=== PATIENT | female | born 1985 | race African-American/Black ===

== ENCOUNTER 2023-08-05 10:30 | Inpatient (IN) | payer OTHER, SELFPAY ==
[2023-08-05] VITALS (18 sets, daily range): BP systolic 120–152; BP diastolic 76–97; PULSE 57–84; RESP 16–18; TEMP 36.1–36.8; O2SAT 95–100; BMI 37.8
--- NOTE | 2023-08-05 11:02 | DI.US.S_ITS ---
PROCEDURE: US ABDOMEN LIMITED INDICATIONS: RIGHT UPPER QUADRANT PAIN TECHNIQUE: Real-time focused scanning was performed of the abdomen, with image documentation. COMPARISON: None. FINDINGS: Liver is within normal limits. Multiple calculi within the gallbladder lumen are present. Nonmobile calculus within the gallbladder neck. No gallbladder wall thickening. No biliary ductal dilatation. Pancreas is not well seen but is within normal limits as visualized. No ascites. IMPRESSION: Cholelithiasis. No evidence of cholecystitis. Dictated by: Antelmo Sarmiento M.D. on 08/05/2023 at 11:42 Approved by: Antelmo Sarmiento M.D. on 08/05/2023 at 11:43
--- NOTE | 2023-08-05 11:09 | ED_ITS ---
[facility] - General Adult General Chief complaint: Abdominal Pain Stated complaint: needs gall bladder checked sent by Time Seen by Provider: 08/05/23 10:50 Source: patient Mode of arrival: Ambulatory History of Present Illness HPI narrative: 38-year-old woman with a history of depression who began having epigastric pain approximately 4:00 p.m. yesterday after last eating around 3:00 p.m.. She was seen at [facility] in bedside ultrasound suggested coli lithiasis with concern for cholecystitis. She eventually ends up at [facility] for further evaluation and ultrasound for confirmation. Records from [facility] are reviewed. She did not have leukocytosis but did have AST elevated at 561, ALT elevated to 53 with normal alk-phos and normal bilirubin. She states she was able to sleep last night and woke up with a general discomfort in the right upper quadrant but not hurting as much as it had yesterday. She has not had anything to eat since 3:00 p.m. yesterday. No fevers, chest pain, palpitations, cough, diarrhea, vomiting Related Data Allergies Allergy/AdvReac Type Severity Reaction Status Date / Time No Known Drug Allergies Allergy Verified 08/05/23 10:44 Review of Systems Review of Systems Narrative: Pertinent positive and negative findings as per HPI Patient History Medical History (Updated 08/05/23 @ 17:45 by Linda Leigh MD) Obesity Depression Social History Smoking Status: Current every day smoker Smoking Status: Current every day smoker tobacco type: vaping alcohol intake frequency: a few times a week Substance Use Type: does not use Exam Initial Vital Signs Initial Vital Signs: Vital Signs Temperature 98.2 F 08/05/23 10:40 Pulse Rate 73 08/05/23 10:40 Respiratory Rate 18 08/05/23 10:40 Blood Pressure 152/97 H 08/05/23 10:40 Pulse Oximetry 98 08/05/23 10:40 Oxygen Delivery Method Room Air 08/05/23 10:40 General: Healthy appearing, in no acute distress. Able to give a complete and coherent history. Well-nourished well-developed HEENT: Moist mucous membranes, normal sclera with reactive pupils, Respiratory: Lungs are clear to auscultation, no wheezing no rales no rhonchi. Full and symmetrical air movement Cardiac: Regular rate and rhythm no murmurs no bruits Abdomen: Soft, minor discomfort in the right upper quadrant no rebound or guarding, no flank pain. Skin: Warm and dry, no rashes Neurologic: Grossly neurologically intact with no obvious asymmetries or abnormalities Extremities: No trauma, well perfused Psych: Cooperative, appropriate insight and affect Course Orders Ordered: ED Orders 08/05/23 10:43 Complete Blood Count AUTO DIFF Stat Comprehensive Metabolic Panel Stat Lipase Stat 08/05/23 11:02 US abdomen limited Stat 08/05/23 11:55 MRCP [MR abdomen wo/w con] Stat 08/05/23 12:16 Urine Microscopic Stat Hydromorphone HCl (Hydromorphone 0.5 Mg Inj) 0.5 mg IV Q15MIN PRN PRN Reason: Pain, Last Admin: 08/05/23 12:09 Dose: 0.5 mg Documented By: LAURA Ondansetron HCl (Ondansetron 4 Mg Odt) 4 mg PO NOW PRN PRN Reason: Nausea And Vomiting Ondansetron HCl (Ondansetron 4 Mg/2 Ml Inj) 4 mg IV NOW PRN PRN Reason: Nausea And Vomiting Discontinued Medications Sodium Chloride (Normal Saline 0.9%) 1,000 mls @ 1,000 mls/hr IV BOLUS ONE Stop: 08/05/23 12:59 Last Infusion: 08/05/23 13:06 Dose: Infused Documented By: Admin: 08/05/23 12:08 Dose: 1,000 mls/hr Documented By: LAURA Ondansetron HCl (Ondansetron 4 Mg/2 Ml Inj) 4 mg IV NOW ONE Stop: 08/05/23 12:01 Last Admin: 08/05/23 12:09 Dose: 4 mg Documented By: LAURA Vital Signs Vital signs: Vital Signs - 8 hr 08/05/23 10:40 08/05/23 10:41 08/05/23 11:00 Temperature 98.2 F Pulse Rate 73 73 71 Respiratory Rate 18 Blood Pressure 152/97 H Pulse Oximetry 98 99 98 Oxygen Delivery Method Room Air 08/05/23 11:30 08/05/23 12:00 08/05/23 12:16 Temperature Pulse Rate 70 78 Respiratory Rate Blood Pressure 132/91 H Pulse Oximetry 98 100 Oxygen Delivery Method 08/05/23 12:16 08/05/23 12:30 08/05/23 13:00 Temperature Pulse Rate 84 72 57 L Respiratory Rate Blood Pressure Pulse Oximetry 100 98 99 Oxygen Delivery Method 08/05/23 13:30 08/05/23 14:00 08/05/23 15:26 Temperature Pulse Rate 69 75 Respiratory Rate Blood Pressure 143/95 H Pulse Oximetry 95 98 Oxygen Delivery Method 08/05/23 15:26 08/05/23 15:30 08/05/23 15:30 Temperature Pulse Rate 81 66 Respiratory Rate Blood Pressure 138/91 H Pulse Oximetry 99 96 Oxygen Delivery Method Medical Decision Making Lab Data 08/05/23 10:43 08/05/23 10:43 Labs: Lab Results 08/05/23 08/05/23 Range/Units 10:43 12:16 WBC 3.9 L (4.5-11.0) X10^3/uL RBC 4.28 (4.0-5.2) X10^6/uL Hgb 13.3 (12.0-16.0) g/dL Hct 39.1 (36-46) % MCV 91.4 (80-100) fL MCH 31.1 (26-34) PG MCHC 34.0 (30-36) % RDW 13.7 (11.6-14.8) % Plt Count 295 (150-400) X10^3/uL Neut % (Auto) 57.8 (50-75) % Lymph % (Auto) 33.2 (25-40) % [place] % (Auto) 8.1 (3-14) % Eos % (Auto) 0.6 L (2-4) % Baso % (Auto) 0.3 (0-2) % Neut # (Auto) 2300 (6767-5014) /uL Lymph # (Auto) 1300 (1043-1419) /uL [place] # (Auto) 300 (0-900) /uL Eos # (Auto) 0 (0-450) /uL Baso # (Auto) 0 (0-100) /uL Sodium 136 L (137-145) mmol/L Potassium 3.9 (3.4-5.1) mmol/L Chloride 104 (98-107) mmol/L Carbon Dioxide 23 (22-32) mmol/L BUN 12 (7-17) mg/dL Creatinine 0.86 (0.52-1.04) mg/dL Estimated GFR > 60 (>60) mL/min BUN/Creatinine Ratio 14.0 (6-22) Glucose 96 (70-100) mg/dL Calcium 9.3 (8.4-10.2) mg/dL Total Bilirubin 2.6 H (0.2-1.3) mg/dL AST 1648 H (14-36) IU/L ALT 1089 H (<35) IU/L Alkaline Phosphatase 142 H (38-126) U/L Total Protein 7.8 (6.3-8.2) g/dL Albumin 4.3 (3.5-5.0) g/dL Globulin 3.5 (1.7-4.1) g/dL Albumin/Globulin Ratio 1.2 (1.0-2.8) Lipase 241 (23-300) U/L Urine RBC None seen (0-5/HPF) Urine WBC 0-1/hpf (0-5/HPF) Ur Squamous Epith Cells 0-1 /hpf (0-5/HPF) Urine Bacteria None seen (None) Ur Culture Indicated? Cult not indicated Vol Urine Centrifuged 10ml (spun) Point of Care Testing Test Results Negative Urine Dip Bedside Urine Glucose Negative Bedside Urine Bilirubin + 1 Bedside Urine Ketone - Negative Urine Specific [place] 1.020 Bedside Urine Occult Blood - Negative Bedside Urine pH 6.0 Bedside Urine Protein - Negative Bedside Urine Urobilinogen - Negative Bedside Urine Nitrite - Negative Bedside Urine Leukocytes +/- 15 Esterase Point of care testing: Point of Care Testing Test Results Negative Urine Dip Bedside Urine Glucose Negative Bedside Urine Bilirubin + 1 Bedside Urine Ketone - Negative Urine Specific [place] 1.020 Bedside Urine Occult Blood - Negative Bedside Urine pH 6.0 Bedside Urine Protein - Negative Bedside Urine Urobilinogen - Negative Bedside Urine Nitrite - Negative Bedside Urine Leukocytes +/- 15 Esterase Imaging Data US - abdomen: Radiologist's Impression: PROCEDURE: US ABDOMEN LIMITED INDICATIONS: RIGHT UPPER QUADRANT PAIN TECHNIQUE: Real-time focused scanning was performed of the abdomen, with image documentation. COMPARISON: None. FINDINGS: Liver is within normal limits. Multiple calculi within the gallbladder lumen are present. Nonmobile calculus within the gallbladder neck. No gallbladder wall thickening. No biliary ductal dilatation. Pancreas is not well seen but is within normal limits as visualized. No ascites. IMPRESSION: Cholelithiasis. No evidence of cholecystitis. Dictated by: Antelmo Sarmiento M.D. on 08/05/2023 at 11:42 MRCP: Radiologist's Impression: PROCEDURE: MR ABDOMEN WO/W CON INDICATIONS: ? impacted CBD stone TECHNIQUE: Coronal HASTE, axial 2D FLASH in- and [id number]; axial breath-hold T2 FSE with fat saturation from the hepatic dome to the iliac crests. Oblique coronal thin- slice and radial thick slab HASTE through the biliary system. Dynamic axial VIBE during administration of contrast. Post-contrast coronal VIBE or 2D FLASH with fat saturation from the hepatic dome to the iliac crests. Optional diffusion weighted imaging and ADC may be performed. COMPARISON: None. FINDINGS: Image quality: Diagnostic. Gallbladder: Gallbladder is contracted. Cholelithiasis. Biliary ducts: No biliary dilation. Pancreas: No ductal dilation. OTHER: Lung bases: Unremarkable. Liver: No solid mass. Spleen: Size is within normal limits. Adrenal Glands: No adrenal nodules. Kidneys and Ureters: No hydronephrosis. No solid mass. No complex renal cystic lesion which requires follow up. Stomach and Bowel: Normal colonic caliber, without significant wall thickening. Peritoneum: No abnormal intraperitoneal fluid. No free air. Ventral Wall: No hernia. Abdominal Nodes: No retroperitoneal or mesenteric adenopathy by size criteria. Vessels: Aorta and inferior vena cava are normal in size. Bones: No aggressive osseous abnormality. IMPRESSION: Gallbladder is contracted, limiting evaluation. No evidence of choledocholithiasis. Dictated by: Clovis Tan M.D. on 08/05/2023 at 16:09 MDM Narrative Medical decision making narrative: CC: Right upper quadrant tenderness Data collected from: patient Medical records reviewed: Records from [facility] Emergency visits last night are available for review Differential considered: Cholelithiasis, cholecystitis, common bile duct stone, gallbladder neck impacted gallstone Exam documented above, pertinent findings include: Mild tenderness in the right upper quadrant. No rebound or guarding. Lab Test results independently reviewed as above. Pertinent findings: Urine test done last night it would be [place] is negative AST last night was 56.1 ALT last night was 253 normal bilirubin and alkaline phosphatase CBC is unremarkable Chemistries are concerning for now bilirubin elevated at 2.6, alk-phos increasing. Initial AST and ALT are not reported, presumably high INR needing additional dilution AST is 1648, ALT is 1089 Lipase is unremarkable Imaging studies independently reviewed: Ultrasound shows gallstones lodged in the neck of the gallbladder but no acute cholecystitis other stones are appreciated within the gallbladder as well MRCP does not show any choledocholithiasis Consultations:[address] Tapia, general surgeon. He agrees that MRCP at this point is appropriate. If there is an impacted common duct stone will need ERCP, if she is simply passed a stone maybe able to proceed to cholecystectomy Treatments: Fluids, parenteral Dilaudid, Zofran Re-evaluations:1200 findings reviewed with the patient. She has had an MRI before and does tolerate them well. She is now beginning to experienced mild nausea and pain. Discussion: MRCP does not show any choledocholithiasis. Care is reviewed with Dr. Tapia. Patient will be admitted with anticipation of cholecystectomy tomorrow afternoon. Findings reviewed with the patient she understands. At this point without evidence of cholecystitis antibiotics are not given in the emergency department. With the acute rise in liver function studies and the MR showing no common duct stone she likely has passed a stone which caused a transient elevation. Discharge Plan Departure Patient Disposition: Admitted as Observation Clinical Impression: Elevated liver function tests Cholelithiasis Qualifiers: Cholelithiasis location: gallbladder Cholecystitis presence: without cholecystitis Biliary obstruction: without biliary obstruction Qualified Code(s): K80.20 - Calculus of gallbladder without cholecystitis without obstruction Admit Date/Time: 08/05/23 17:10 Admit Provider: Kevin Tapia
[2023-08-05 11:47] LABS: Albumin 4.3 g/dL (3.5-5.0); Albumin Globulin Ratio 1.2 (1.0-2.8); Alkaline Phosphatase 142 U/L (38-126); Bilirubin Total 2.6 mg/dL (0.2-1.3); Blood Urea Nitrogen 12 mg/dL (7-17); Calcium 9.3 mg/dL (8.4-10.2); Carbon Dioxide 23 mmol/L (22-32); Chloride 104 mmol/L (98-107); Estimated Glomerular Filt Rate > 60 mL/min (>60); Globulin 3.5 g/dL (1.7-4.1); Glucose 96 mg/dL (70-100); Lipase 241 U/L (23-300); Potassium 3.9 mmol/L (3.4-5.1); Sodium 136 mmol/L (137-145); Total Protein 7.8 g/dL (6.3-8.2)
[2023-08-05 11:49] LABS: Add Manual Diff / Slide Review NO; Basophils Absolute Auto 0 /uL (0-100); Basophils Percent Auto 0.3 % (0-2); Eosinophils Absolute Auto 0 /uL (0-450); Eosinophils Percent Auto 0.6 % (2-4); Hematocrit 39.1 % (36-46); Hemoglobin 13.3 g/dL (12.0-16.0); Lymphocytes Absolute Auto 1300 /uL (1100-4500); Lymphocytes Percent Auto 33.2 % (25-40); Mean Corpuscular Hemoglobin 31.1 PG (26-34); Mean Corpuscular Volume 91.4 fL (80-100); Monocytes Absolute Auto 300 /uL (0-900); Monocytes Percent Auto 8.1 % (3-14); Neutrophils Absolute Auto 2300 /uL (1500-7000); Neutrophils Percent Auto 57.8 % (50-75); Platelet Count 295 X10^3/uL (150-400); Red Blood Cell Count 4.28 X10^6/uL (4.0-5.2); Red Cell Distribution Width 13.7 % (11.6-14.8); White Blood Cell Count 3.9 X10^3/uL (4.5-11.0)
--- NOTE | 2023-08-05 11:55 | DI.MRI.S_ITS ---
PROCEDURE: MR ABDOMEN WO/W CON INDICATIONS: ? impacted CBD stone TECHNIQUE: Coronal HASTE, axial 2D FLASH in- and [id number]; axial breath-hold T2 FSE with fat saturation from the hepatic dome to the iliac crests. Oblique coronal thin-slice and radial thick slab HASTE through the biliary system. Dynamic axial VIBE during administration of contrast. Post-contrast coronal VIBE or 2D FLASH with fat saturation from the hepatic dome to the iliac crests. Optional diffusion weighted imaging and ADC may be performed. COMPARISON: None. FINDINGS: Image quality: Diagnostic. Gallbladder: Gallbladder is contracted. Cholelithiasis. Biliary ducts: No biliary dilation. Pancreas: No ductal dilation. OTHER: Lung bases: Unremarkable. Liver: No solid mass. Spleen: Size is within normal limits. Adrenal Glands: No adrenal nodules. Kidneys and Ureters: No hydronephrosis. No solid mass. No complex renal cystic lesion which requires follow up. Stomach and Bowel: Normal colonic caliber, without significant wall thickening. Peritoneum: No abnormal intraperitoneal fluid. No free air. Ventral Wall: No hernia. Abdominal Nodes: No retroperitoneal or mesenteric adenopathy by size criteria. Vessels: Aorta and inferior vena cava are normal in size. Bones: No aggressive osseous abnormality. IMPRESSION: Gallbladder is contracted, limiting evaluation. No evidence of choledocholithiasis. Dictated by: Clovis Tan M.D. on 08/05/2023 at 16:09 Approved by: Clovis Tan M.D. on 08/05/2023 at 16:14
[2023-08-05 12:01] LABS: Alanine Aminotransferase 1089 IU/L (<35)
[2023-08-05] MEDS: SODIUM CHLORIDE 0.9% 1,000 ML 1000 ML IV (12:08)
[2023-08-05] MEDS: ONDANSETRON 4 MG/2 ML INJ IV (12:09)
[2023-08-05] MEDS: HYDROMORPHONE 0.5 MG INJ IV (12:09)
[2023-08-05 12:16] LABS: HEMOLYSIS 20 (0-50)
[2023-08-05 12:17] LABS: Aspartate Aminotransferase 1648 IU/L (14-36)
[2023-08-05 12:59] LABS: Bacteria Urine None Seen; Culture Indicated Urine Cult Not Indicated; RBC Urine None Seen (0-5/HPF); Squamous Epithelial Cell Urine 0-1 /HPF (0-5/HPF); Urine Volume 10mL (spun); WBC Urine 0-1/HPF (0-5/HPF)
--- NOTE | 2023-08-05 17:20 | P.HP_ITS ---
History of Present Illness History of Present Illness Date Patient Seen: 08/05/23 Time Patient Seen: 17:20 Chief complaint: needs gall bladder checked sent by dr Lew: Kristen is a 38-year-old woman who presents with a few days of epigastric and right upper quadrant pain. She was also noted to have elevated liver enzymes today. This prompted an ultrasound which showed gallstones as well as an MRCP which showed no evidence of choledocholithiasis. Her pain has improved in the past hour or two. 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 Medical History (Updated 08/05/23 @ 17:22 by Kevin Tapia MD) Obesity Depression Social History Smoking Status: Current every day smoker Meds Home Medications and Allergies Allergies Allergy/AdvReac Type Severity Reaction Status Date / Time No Known Drug Allergies Allergy Verified 08/05/23 10:44 Exam Vital Signs (past 8 hours): - 08/05/23 10:40 08/05/23 10:41 08/05/23 11:00 Temperature 98.2 F Pulse Rate 73 73 71 Respiratory Rate 18 Blood Pressure 152/97 H Pulse Oximetry 98 99 98 Oxygen Delivery Method Room Air 08/05/23 11:30 08/05/23 12:00 08/05/23 12:16 Temperature Pulse Rate 70 78 Respiratory Rate Blood Pressure 132/91 H Pulse Oximetry 98 100 Oxygen Delivery Method 08/05/23 12:16 08/05/23 12:30 08/05/23 13:00 Temperature Pulse Rate 84 72 57 L Respiratory Rate Blood Pressure Pulse Oximetry 100 98 99 Oxygen Delivery Method 08/05/23 13:30 08/05/23 14:00 08/05/23 15:26 Temperature Pulse Rate 69 75 Respiratory Rate Blood Pressure 143/95 H Pulse Oximetry 95 98 Oxygen Delivery Method 08/05/23 15:26 08/05/23 15:30 08/05/23 15:30 Temperature Pulse Rate 81 66 Respiratory Rate Blood Pressure 138/91 H Pulse Oximetry 99 96 Oxygen Delivery Method Oxygen Delivery Method Room Air Narrative Exam Narrative: Abdomen is soft, no Flannery sign Objective Labs 08/05/23 10:43 08/05/23 10:43 Labs: Laboratory Results - last 24 hr 08/05/23 08/05/23 10:43 12:16 WBC 3.9 L RBC 4.28 Hgb 13.3 Hct 39.1 MCV 91.4 MCH 31.1 MCHC 34.0 RDW 13.7 Plt Count 295 Neut % (Auto) 57.8 Lymph % (Auto) 33.2 [place] % (Auto) 8.1 Eos % (Auto) 0.6 L Baso % (Auto) 0.3 Neut # (Auto) 2300 Lymph # (Auto) 1300 [place] # (Auto) 300 Eos # (Auto) 0 Baso # (Auto) 0 Sodium 136 L Potassium 3.9 Chloride 104 Carbon Dioxide 23 BUN 12 Creatinine 0.86 Estimated GFR > 60 BUN/Creatinine Ratio 14.0 Glucose 96 Calcium 9.3 Total Bilirubin 2.6 H AST 1648 H ALT 1089 H Alkaline Phosphatase 142 H Total Protein 7.8 Albumin 4.3 Globulin 3.5 Albumin/Globulin Ratio 1.2 Lipase 241 Urine RBC None seen Urine WBC 0-1/hpf Ur Squamous Epith Cells 0-1 /hpf Urine Bacteria None seen Ur Culture Indicated? Cult not indicated Vol Urine Centrifuged 10ml (spun) Assessment & Plan Assessment and plan (1) Cholelithiasis: Qualifiers: Cholelithiasis location: gallbladder Cholecystitis presence: without cholecystitis Biliary obstruction: without biliary obstruction Qualified Code(s): K80.20 - Calculus of gallbladder without cholecystitis without obstruction Status: Acute Plan 30-year-old woman with symptomatic cholelithiasis. Given her elevated liver enzymes I suspect she passed a stone recently. Since the MRCP is normal I recommend we proceed with a laparoscopic cholecystectomy with an intraoperative cholangiogram tomorrow afternoon. She can have clear liquid diet tonight and will be NPO after midnight.
[2023-08-05] MEDS: LACTATED RINGERS 1,000 ML 100 ML IV (20:11)
[2023-08-06] VITALS (15 sets, daily range): BP systolic 113–131; BP diastolic 75–91; PULSE 62–98; RESP 13–18; TEMP 36.1–37.3; O2SAT 91–100; BMI 37.8
--- NOTE | 2023-08-06 | PATH_ITS ---
[facility] Accession Number: [id number] No. of containers..01 Tissue . 01 Material submitted: . gallbladder - GALLBLADDER . 01 Diagnosis: GALLBLADDER, CHOLECYSTECTOMY: Chronic cholecystitis and cholelithiasis. MRV 08/09/2023 1025 Local . 01 Electronically signed: . Annie Carlson MD, Pathologist NPI- [id number] . 01 Gross description: . The specimen is received in formalin labeled with the patient's name, , and gallbladder, and consists of an intact gallbladder measuring 9.6 x 3.4 x 3.4 cm with an unremarkable external surface. The cystic duct margin is inked blue, and no pericystic lymph node is identified. The lumen contains green viscous bile with multiple yellow bosselated calculi measuring up to 0.2 cm in greatest dimension and not grossly obstructing the cystic duct. The mucosa is green and velvety with yellow areas of discoloration, and no polyps or lesions identified. The bagley average 0.2 cm thick. Erp Programmer sections to include the cystic duct margin and full thickness sections are submitted in cassette A1. ([id number]) /MRV 08/08/2023 1330 Local . 01 Pathologist provided ICD-10: K81.1, K80.10 . 01 CPT . 247338 Specimen Comment: A courtesy copy of this report has been sent to [phone] Performed at: 01 [facility] [address] [place] [address] [id number] MD Janak Mijares MD Phone: [phone]
[2023-08-06 04:37] LABS: Add Manual Diff / Slide Review NO; Basophils Absolute Auto 0 /uL (0-100); Basophils Percent Auto 0.5 % (0-2); Eosinophils Absolute Auto 100 /uL (0-450); Eosinophils Percent Auto 1.7 % (2-4); Hematocrit 33.9 % (36-46); Hemoglobin 11.8 g/dL (12.0-16.0); Lymphocytes Absolute Auto 1700 /uL (1100-4500); Lymphocytes Percent Auto 44.5 % (25-40); Mean Corpuscular HGB Conc 34.9 % (30-36); Mean Corpuscular Volume 91.9 fL (80-100); Monocytes Absolute Auto 300 /uL (0-900); Monocytes Percent Auto 6.6 % (3-14); Neutrophils Absolute Auto 1800 /uL (1500-7000); Neutrophils Percent Auto 46.7 % (50-75); Platelet Count 255 X10^3/uL (150-400); Red Blood Cell Count 3.69 X10^6/uL (4.0-5.2); Red Cell Distribution Width 14.2 % (11.6-14.8); White Blood Cell Count 3.9 X10^3/uL (4.5-11.0)
[2023-08-06 04:49] LABS: Albumin 3.3 g/dL (3.5-5.0); Albumin Globulin Ratio 1.1 (1.0-2.8); Alkaline Phosphatase 142 U/L (38-126); Aspartate Aminotransferase 612 IU/L (14-36); Bilirubin Total 1.7 mg/dL (0.2-1.3); Blood Urea Nitrogen 8 mg/dL (7-17); Calcium 8.3 mg/dL (8.4-10.2); Carbon Dioxide 23 mmol/L (22-32); Chloride 109 mmol/L (98-107); Estimated Glomerular Filt Rate > 60 mL/min (>60); Glucose 102 mg/dL (70-100); HEMOLYSIS < 15 (0-50); Potassium 3.8 mmol/L (3.4-5.1); Sodium 135 mmol/L (137-145); Total Protein 6.3 g/dL (6.3-8.2)
[2023-08-06 04:57] LABS: Alanine Aminotransferase 806 IU/L (<35)
[2023-08-06] MEDS: ONDANSETRON 4 MG/2 ML INJ IV ×2 (05:04→17:40)
[2023-08-06] MEDS: HYDROMORPHONE 0.5 MG INJ IV (05:04)
--- NOTE | 2023-08-06 13:45 | DI.RAD.S_ITS ---
PROCEDURE: XR CHOLANGIOGRAM OPERATIVE INDICATIONS: cholecystitis COMPARISON: [facility], MR, MR ABDOMEN WO/W CON, 08/05/2023, 14:40. [facility], US, US ABDOMEN LIMITED, 08/05/2023, 11:12. FINDINGS: Biliary ducts: The surgeon injected contrast into the biliary ducts after cannulation of the cystic duct stump. Visualized intra- and extrahepatic bile ducts are normal in caliber, without strictures. No intraluminal filling defects to suggest retained ductal stones or sludge. No evidence for iatrogenic ductal injury. Duodenum: Contrast flows promptly through the sphincter of Oddi into the duodenum, which appears normal in caliber. IMPRESSION: Patent ductus without visualized filling defect. Dictated by: Maddison Novak M.D. on 08/07/2023 at 12:49 Approved by: Maddison Novak M.D. on 08/07/2023 at 12:49
--- NOTE | 2023-08-06 15:02 | P.PN_ITS ---
Subjective Subjective Date Patient Seen: 08/06/23 Time Patient Seen: 15:02 Interval history: Feeling better today. Liver enzymes coming down today consistent with passage of a stone prior to the MRCP. Exam Vital Signs (past 8 hours): Oxygen Delivery Method Room Air Const General: healthy appearing Objective Labs 08/06/23 04:04 08/06/23 04:04 Labs: Laboratory Results - last 24 hr 08/06/23 04:04 WBC 3.9 L RBC 3.69 L Hgb 11.8 L Hct 33.9 L MCV 91.9 MCH 32.0 MCHC 34.9 RDW 14.2 Plt Count 255 Neut % (Auto) 46.7 L Lymph % (Auto) 44.5 H [place] % (Auto) 6.6 Eos % (Auto) 1.7 L Baso % (Auto) 0.5 Neut # (Auto) 1800 Lymph # (Auto) 1700 [place] # (Auto) 300 Eos # (Auto) 100 Baso # (Auto) 0 Sodium 135 L Potassium 3.8 Chloride 109 H Carbon Dioxide 23 BUN 8 Creatinine 0.80 Estimated GFR > 60 BUN/Creatinine Ratio 10.0 Glucose 102 H Calcium 8.3 L Total Bilirubin 1.7 H AST 612 H ALT 806 H Alkaline Phosphatase 142 H Total Protein 6.3 Albumin 3.3 L Globulin 3.0 Albumin/Globulin Ratio 1.1 PFSH Medical History (Updated 08/05/23 @ 17:45 by Linda Leigh MD) Obesity Depression Social History household members: none Smoking Status: Current every day smoker Assessment & Plan Assessment and plan (1) Cholelithiasis: Qualifiers: Cholelithiasis location: gallbladder Cholecystitis presence: without cholecystitis Biliary obstruction: without biliary obstruction Qualified Code(s): K80.20 - Calculus of gallbladder without cholecystitis without obstruction Status: Acute Plan We will proceed with a laparoscopic cholecystectomy with intraoperative cholangiogram today. She will be able to go home tomorrow.
[2023-08-06] MEDS: LACTATED RINGERS 1,000 ML 42 ML IV ×2 (15:09→16:58)
[2023-08-06] MEDS: SCOPOLAMINE 1 PATCH TOP (15:13)
--- NOTE | 2023-08-06 15:19 | CM.DANOTE ---
Initial DCP Assessment Note Reviewed EMR and team rounds for pt's medical status and anticipated d/c needs. Went to meet with pt at bedside, however she had just been taken down to surgery. Payor: Bessy Au Attending: Dr. Tapia Pt is a 38 year-old F who presented to the ED last evening with complaints of worsening epigastric pain that began about an hour after she had eaten. ED ultrasound confirmed cholecystitis, surgery was consulted, and pt was brought to the floor in OBS bed in preparation for cholecystectomy. Surgery is being completed this afternoon, plan is to d/c home tomorrow, no anticipated home d/c needs. 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 Her mother is flying out later this evening in order to provide care for pt postoperatively, as well as to transport her home once medically cleared. DCP will continue to follow and assist with any further evolving d/c needs. Discharge Planning/Care Management CM Discharge Assessment Start: 08/06/23 14:50 Freq: Status: Active Protocol: Document 08/06/23 15:17 DPL (Rec: 08/06/23 15:19 DPL [id number]) Discharge Planning Assessment Assigned Analyst Business Analysis EDUARDO Aguillon Advance Directives? No History Provided By Patient,Medical Record Prior Living Arrangements Apartment/Condo Household Members none Type of transporation used prior to Drives own vehicle admit Independent with ADL's Yes Is patient alert and oriented? Yes Caregiver for Another No Comment N/A Comment No identified d/c needs at this time. Barriers to Discharge No Discharge Plan Home Transportation Arrangement Mother Referrals Initiated None needed Review Status In Process Please Provide Date Initial DC 08/06/23 Assessment Was Performed
[2023-08-06] MEDS: CEFAZOLIN 2 GM/100 ML PREMIX 100 ML IV (15:40)
--- NOTE | 2023-08-06 15:56 | SUR.OPER ---
Supine on padded OR bed, head on pillow, safety belt at thigh, left arm padded and tucked at side. Right arm secured on padded arm board <90 degrees abduction. Legs uncrossed. Padded footboard in place. Tape over blanket to secure lower legs.
[2023-08-06] MEDS: iopamidoL 30 ML VIAL INJ ×2 (16:00→16:25)
[2023-08-06] MEDS: GLUCAGON,HUMAN RECOMBINANT 1 MG/ML VIAL IV (16:25)
[2023-08-06] MEDS: ACETAMINOPHEN IV 1,000 MG/100 ML VIAL 400 MG IV (16:34)
[2023-08-06] MEDS: BUPIVACAINE 0.5% W/ EPI (PF) 30 ML VIAL INJ (17:13)
--- NOTE | 2023-08-06 17:20 | PM.OP.1 ---
Operative Date/Time/Diagnoses Date of procedure: 08/06/23 Time of procedure: 17:20 Pre-op diagnosis: Cholelithiasis Post-op diagnosis: same Procedure & Clinicians Procedure: Laparoscopic cholecystectomy with intraoperative cholangiogram Same procedure as scheduled: Yes Surgeon: Kevin Tapia Anesthesia Type: General Operative Notes Procedure in detail: The patient was given preoperative antibiotic. The patient was brought to the operating room, placed on the table in the supine position. General endotracheal anesthesia was induced. The abdomen was prepped and draped. A time-out was performed. We made a 1 cm infraumbilical incision. We dissected down to the base of the umbilical stalk using cautery. We grasped the umbilical stalk with a Osiris clamp to elevate the abdominal wall. We scored the fascia in the midline with cautery 1 cm. We pierced the peritoneum with a Peon clamp. The Benjamin port was placed and the abdomen was insufflated to 15 mmHg. A 5 mm 30 degree laparoscopic was inserted. There was no evidence of any injury from the entry. Next, we placed 5 mm ports in the subxiphoid position and right upper quadrant at the midclavicular line and anterior axillary line. The patient was then positioned in reverse Trendelenburg and the table was tilted to the left. The gallbladder was grasped at the dome and retracted cephalad. We then dissected the cystic structures with a combination of hook cautery and blunt dissection. We obtained a critical view. Next, a cholangiogram was performed using the 6 Georgian ureteral catheter. Contrast opacified the cystic duct, hepatic duct and common duct but no flow was seen into the duodenal. 1 mg of glucagon was administered and 5 minutes pass before another cholangiogram was performed. Again no contrast was noted to flow into the duodenum. We then placed hemoclips on the cystic duct and artery and divided the cystic duct and artery sharply between the clips. The gallbladder was then dissected off the liver and placed in a specimen retrieval bag. We irrigated the right upper quadrant and all the aspirate returned clear. We then removed the 5 mm ports under direct vision we removed the Benjamin port. We then injected some local into the fascia and closed the fascia with 2 interrupted 0 Vicryl sutures. The skin incisions were closed with 4 Monocryl and Steri-Strips were applied. Band-Aids were applied over the Steri-Strips. EBL: 30 mL Specimen: Gallbladder and contents Post-operative Condition: stable Disposition: PACU
[2023-08-06] MEDS: OXYCODONE IR 5 MG TABLET PO ×2 (17:39→22:46)
[2023-08-07 08:31] LABS: COVID19 -Nasal RAPID Negative (Negative)
[2023-08-07 09:00] LABS: Albumin 3.8 g/dL (3.5-5.0); Albumin Globulin Ratio 1.2 (1.0-2.8); Alkaline Phosphatase 182 U/L (38-126); Aspartate Aminotransferase 664 IU/L (14-36); BUN Creatinine Ratio 5.9 (6-22); Bilirubin Total 1.5 mg/dL (0.2-1.3); Blood Urea Nitrogen 5 mg/dL (7-17); Carbon Dioxide 25 mmol/L (22-32); Chloride 105 mmol/L (98-107); Estimated Glomerular Filt Rate > 60 mL/min (>60); Globulin 3.3 g/dL (1.7-4.1); Glucose 107 mg/dL (70-100); HEMOLYSIS < 15 (0-50); Potassium 3.8 mmol/L (3.4-5.1); Sodium 135 mmol/L (137-145); Total Protein 7.1 g/dL (6.3-8.2)
[2023-08-07 09:06] VITALS: BP 120/80; PULSE 71; RESP 16; TEMP 36.8; O2SAT 99
[2023-08-07 09:15] LABS: Alanine Aminotransferase 880 IU/L (<35)
--- NOTE | 2023-08-07 11:35 | CM.DPC ---
DCP Cont. Reviewed EMR and team rounds for status updates. Pt is being transferred to [facility] for a ERCP procedure today, then will return to for further eval/tx. Will continue to monitor for final d/c plan.
[2023-08-07] MEDS: HYDROMORPHONE 0.5 MG INJ IV ×2 (12:09→15:19)
--- NOTE | 2023-08-07 18:48 | PC.NURSE ---
Patient is back from ERCP from [facility], remains in room air 94%,has taken pudding without nausea.
[2023-08-07] MEDS: SODIUM CHLORIDE 0.9% FLUSH 10 ML IV (21:37)
[2023-08-08 05:00] VITALS: BP 112/68; PULSE 65; RESP 17; TEMP 36.4; O2SAT 97
[2023-08-08] MEDS: IBUPROFEN 600 MG TABLET PO (07:59)
[2023-08-08] MEDS: HYDROCODONE/ACET 5/325 TABLET 1 TAB PO (07:59)
[2023-08-08 08:00] VITALS: BP 121/70; PULSE 78; RESP 16; TEMP 36.2; O2SAT 99
[2023-08-08] MEDS: SODIUM CHLORIDE 0.9% FLUSH 10 ML IV (08:00)
--- NOTE | 2023-08-08 09:10 | PC.NURSE ---
Assess- Patient is alert and oriented x4. She requested pain medication and was given ibuprofen and Vicodin for comfort. This was helpful to patient. She has 4 bandaides over her incisions and they are all cdi. Patient ate breakfast and she is visiting with her mother, who spent the night last night.
--- NOTE | 2023-08-08 10:41 | P.PN_ITS ---
Subjective Subjective Date Patient Seen: 08/08/23 Time Patient Seen: 10:41 Interval history: ERCP yesterday at [facility] with successful removal of sludge and stones from common bile duct. Feeling much better today. Tolerating a diet. Exam Vital Signs (past 8 hours): - 08/08/23 05:00 08/08/23 08:00 Temperature 97.6 F 97.1 F L Pulse Rate 65 78 Respiratory Rate 17 16 Blood Pressure 112/68 121/70 Pulse Oximetry 97 99 Oxygen Flow Rate 0 0 Fraction of Inspired Oxygen 21 Oxygen Delivery Method Room Air Oxygen Flow Rate 0 Const General: No acute distress Resp Effort & Inspection: normal respiratory effort Objective Labs 08/06/23 04:04 08/07/23 08:27 [facility] Medical History (Updated 08/05/23 @ 17:45 by Linda Leigh MD) Obesity Depression Social History household members: none Smoking Status: Current every day smoker Assessment & Plan Assessment and plan (1) Cholelithiasis: Qualifiers: Cholelithiasis location: gallbladder Cholecystitis presence: without cholecystitis Biliary obstruction: without biliary obstruction Qualified Code(s): K80.20 - Calculus of gallbladder without cholecystitis without obstruction Status: Acute Plan Discharge home today Follow up in 2-3 weeks for a postop visit
--- NOTE | 2023-08-08 11:45 | CM.DPC ---
DCP Cont. Reviewed EMR and team rounds for status updates. Pt is feeling much better today following the ERCP procedure done yesterday at [facility]. Plan is for her to d/c home today, her mother is in town and will transport/stay with her for her immediate post-op recovery needs. No further DCP needs identified at this time.
== END 2023-08-08 11:47 | disposition home or self-care (01) | DRG 419 ==
LOC: ED 17:04 → AC 17:11
PROVIDERS: Admitting Provider Surgery; Emergency Provider Emergency Medicine; Referring Provider Emergency Medicine; Visit Provider Surgery
PROC: 0FT44ZZ Resection of Gallbladder, Percutaneous Endoscopic Approach (ICD-10-PCS; CPT 47562; principal; 2023-08-06 13:45)
DX: K80.20 Calculus of gallbladder without cholecystitis without obstruction (principal); F17.290 Nicotine dependence, other tobacco product, uncomplicated
CPT/HCPCS: 36415; 47563; 74183; 74300; 76705; 80053; 81003; 81015; 81025; 83690; 85025; 87635; 96374; 96375; 99222; 99284; 99285; G0378; J0136; J0690; J1100; J1170; J1610; J1885; J2250; J2405; J2704; J3010; Q9967

== ENCOUNTER → 2023-11-29 15:53 | Outpatient (CLI) | payer OTHER, SELFPAY ==
[2023-08-05 18:39] VITALS: BMI 37.8
--- NOTE | 2023-11-29 | DI.US.S_ITS ---
PROCEDURE: US ABDOMEN COMPLETE INDICATIONS: Acquired absence of other specified parts of digestive tract TECHNIQUE: Real-time scanning was performed of the abdominal and retroperitoneal organs, with image documentation. COMPARISON: [facility], CR, XR ERCP BILIARY AND PANCREATIC, 08/07/2023, 17:10. [facility], CR, XR CHOLANGIOGRAM OPERATIVE, 08/06/2023, 16:22. [facility], MR, MR ABDOMEN WO/W CON, 08/05/2023, 14:40. [facility], US, US ABDOMEN LIMITED, 08/05/2023, 11:12. FINDINGS: Liver: Liver is normal in size and demonstrates mildly increased echotexture. Gallbladder: Gallbladder is surgically absent. Biliary ducts: Intrahepatic bile ducts are non-dilated. Extrahepatic bile duct caliber measures 3.9 mm. Normal is 6-7 mm or less in diameter, or 10 mm or less post-cholecystectomy. Pancreas: Visualized portions of the pancreas are sonographically normal. Spleen: Spleen is normal in size and homogeneous in echotexture. Kidneys: Kidneys are normal in size and echotexture. Right kidney measures 10.8 cm long; left kidney measures 11.4 cm long. No hydronephrosis or nephrolithiasis. No solid masses. Aorta: Visualized aorta is normal in caliber at less than 3 cm. Iliacs: Proximal common iliac arteries are normal in caliber at less than 2.5 cm. IVC: Intrahepatic inferior vena cava is patent. Miscellaneous: No free abdominal fluid. IMPRESSION: 1. Mild hepatic steatosis. 2. Cholecystectomy. Dictated by: Nishant Monzon M.D. on 11/30/2023 at 9:09 Approved by: Nishant Monzon M.D. on 11/30/2023 at 9:13
== END ==
DX: Z90.49 Acquired absence of other specified parts of digestive tract (principal); K76.0 Fatty (change of) liver, not elsewhere classified
CPT/HCPCS: 76700

== ENCOUNTER → 2025-05-03 07:55 | Outpatient (CLI) | payer OTHER, SELFPAY ==
[2023-08-05 18:39] VITALS: BMI 37.8
--- NOTE | 2025-05-03 07:57 | DI.RAD.S_ITS ---
PROCEDURE: XR LUMBAR SPINE MIN 4V INDICATIONS: BACK PAIN TECHNIQUE: 5 views of the lumbar spine were acquired, including bilateral oblique views. COMPARISON: None. FINDINGS: Bones: 5 nonrib-bearing vertebrae are present. Rudimentary disc space is noted at the S1-2 level. There is normal bony alignment. No acute vertebral body compression fractures. No suspicious bony lesions. Minimal degenerative endplate changes and facet hypertrophy. Soft tissues: Overlying bowel gas pattern is normal. No suspicious soft tissue calcifications. Oblique images: No pars defects. IMPRESSION: Minimal spondylosis. No acute osseous abnormality. If symptoms persist or if there is continued clinical concern, cross-sectional imaging such as MRI or CT may be helpful for further evaluation. Approved by: Russell Street M.D. on 05/03/2025 at 8:22
== END ==
PROVIDERS: Referring Provider Physical Medicine & Rehabilitation; Visit Provider Physical Medicine & Rehabilitation
DX: M54.9 Dorsalgia, unspecified (principal)
CPT/HCPCS: 72110